=== PATIENT | male | born 2000 | race Caucasian/White ===

== ENCOUNTER 2020-04-04 00:45 | Emergency (ER) | payer OTHER ==
[~2020-04-04] VITALS: Ht 152.4 cm; Wt 83.9 kg
[2020-04-04 01:14] VITALS: BP 116/68
[2020-04-04] MEDS ORDERED: KETOROLAC TROMETHAMINE INJ 60 MG/2 ML VIAL IM ONE ×2 (01:19→01:30)
[2020-04-04] MEDS ORDERED: LORAZEPAM INJ 2 MG/ML VIAL ONE (01:20)
[2020-04-04] MEDS ORDERED: LORAZEPAM INJ 2 MG/ML VIAL IM ONE (01:30)
== END 2020-04-04 01:32 | disposition home or self-care (01) ==
LOC: ER 00:45
DX: M54.40 Lumbago with sciatica, unspecified side (principal)
CPT/HCPCS: 96372 ×2; 99284; J1885; J2060

== ENCOUNTER 2024-01-08 00:09 | Emergency (ER) | payer SELFPAY ==
[~2024-01-08] VITALS: Ht 175.3 cm; Wt 74.8 kg
[2024-01-08] MEDS ORDERED: SULF1TAB48 PO (01:29)
[2024-01-08] MEDS ORDERED: CEPH500T PO (01:29)
[2024-01-08] MEDS ORDERED: CEPHALEXIN MONOHYDRATE 500 MG CAPSULE PO ONE (01:31)
[2024-01-08] MEDS ORDERED: SULFAMETH/TRIMETH 800/160 MG 1 UDTAB TABLET ONE (01:31)
[2024-01-08] MEDS: CEPHALEXIN MONOHYDRATE 500 MG CAPSULE PO ONE (01:36)
[2024-01-08] MEDS: SULFAMETH/TRIMETH 800/160 MG 1 UDTAB TABLET PO ONE (01:36)
[2024-01-08 01:37] VITALS: BP 124/79; TEMP 98.2; O2SAT 99
== END 2024-01-08 01:39 | disposition left against medical advice (07) ==
LOC: ER 00:16
DX: L03.011 Cellulitis of right finger (principal); M79.89 Other specified soft tissue disorders

== ENCOUNTER 2025-04-10 00:26 | Emergency (ER) | payer OTHER ==
[~2025-04-10] VITALS: Ht 177.8 cm; Wt 79.4 kg
[~2025-04-10 00:26] MED LIST: CEPH500T PO; SULF1TAB48 PO
[2025-04-10] MEDS ORDERED: IBUPROFEN 400 MG TABLET ONE (00:57)
[2025-04-10] MEDS: IBUPROFEN 400 MG TABLET PO ONE (01:06)
[2025-04-10] MEDS ORDERED: IBUP-1957 PO (01:35)
[2025-04-10 01:53] VITALS: BP 130/81; TEMP 98; O2SAT 99
== END 2025-04-10 01:54 | disposition home or self-care (01) ==
LOC: ER 00:30
DX: S83.91XA Sprain of unspecified site of right knee, initial encounter (principal); X58.XXXA Exposure to other specified factors, initial encounter; Y93.89 Activity, other specified; Y92.89 Other specified places as the place of occurrence of the external cause; Y99.8 Other external cause status
CPT/HCPCS: 73564-TC